=== PATIENT | female | born 1960 | race Caucasian/White ===

== ENCOUNTER 2022-02-02 12:02 | Emergency (ER) | payer OTHER ==
[~2022-02-02] VITALS: Ht 162.6 cm; Wt 72.6 kg
[2022-02-02 14:19] VITALS: BP 121/72
== END 2022-02-02 14:42 | disposition home or self-care (01) ==
LOC: EDH 12:02
DX: M71.21 Synovial cyst of popliteal space [Baker], right knee (principal); Z90.89 Acquired absence of other organs